=== PATIENT | female | born 1985 | race Caucasian/White ===

== ENCOUNTER 2017-03-20 15:58 | Emergency (ER) | payer MEDICAID ==
[~2017-03-20] VITALS: Wt 71.5 kg
[~2017-03-20 15:58] MED LIST: RANI150T5 PO
--- NOTE | 2017-03-20 16:56 | RADRPT ---
PROCEDURE: XR Chest. CLINICAL INDICATION: Shortness of breath. TECHNIQUE: Single frontal view. COMPARISON: None. FINDINGS: The lungs are clear. The heart size is normal. There is no pleural effusion. There is no pneumothorax. IMPRESSION: 1. Normal chest radiograph. RPTAT: QQ .Nikos Higgins MD, Date Time Electronically viewed and signed by .Nikos Higgins MD, on 03/20/2017 16:55 .R/
[2017-03-20] MEDS ORDERED: ACET325T33 PO (17:24)
--- NOTE | 2017-03-20 18:38 | ERD ---
ER Documentation Chief Complaint Chief Complaint sob, pain to left chest on inspiration HPI 31-year-old female complaining of left-sided chest pain. Patient's pain is only present during deep inspirations. Pain has been consistent for the last day. Denies recent travel. Denies OCP use. Denies recent surgeries. Denies any radiating cardiac chest pain. No hemoptysis. No fevers. No dyspnea on exertion. Has never had this before. Has been taking Tylenol for symptom relief with mild alleviation. ROS All systems reviewed and are negative except as per history of present illness. Medications Home Meds Active Scripts Acetaminophen* (Tylenol*) 325 Mg Tablet, 1 TAB PO Q6 Y for PAIN AND OR ELEVATED TEMP, #20 TAB Prov:FARRUKH SWEET PA-C 03/20/17 Reported Medications Ranitidine Hcl* (Ranitidine Hcl*) 150 Mg Tablet, 150 MG PO DAILY, TAB 04/05/14 Allergies Allergies: Coded Allergies: ibuprofen (Verified Allergy, Intermediate, RASH, 04/05/14) PMhx/Soc Medical and Surgical Hx: pt denies Medical Hx, pt denies Surgical Hx History of Surgery: No Anesthesia Reaction: No Hx Neurological Disorder: No Hx Respiratory Disorders: No Hx Cardiac Disorders: No Hx Psychiatric Problems: No Hx Miscellaneous Medical Probl: No Hx Alcohol Use: No Hx Substance Use: No Hx Tobacco Use: No Smoking Status: Never smoker Physical Exam Vitals Vital Signs Date Time Temp Pulse Resp B/P Pulse Ox O2 Delivery O2 Flow Rate FiO2 03/20/17 16:05 99.0 72 20 165/81 100 Physical Exam GENERAL: The patient is well-appearing, well-nourished, in no acute distress CHEST: Clear to auscultation bilaterally. There are no rales, wheezes or rhonchi. HEART: Regular rate and rhythm. No murmurs, clicks, rubs or gallops. No S3 or S4. SKIN: There is no apparent rash or petechiae. The skin is warm and dry. Procedures/MDM DIAGNOSTIC IMAGING REPORT Patient: CRAIG GUO : 1985 Age: 31 Sex: F MR #: [id number] DOS: 03/20/17 1631 Ordering MD: SYMONE SWEET PA-C Location: [facility] Room/Bed: PROCEDURE: XR Chest. CLINICAL INDICATION: Shortness of breath. TECHNIQUE: Single frontal view. COMPARISON: None. FINDINGS: The lungs are clear. The heart size is normal. There is no pleural effusion. There is no pneumothorax. IMPRESSION: 1. Normal chest radiograph. EKG: Rate/Rhythm: Normal sinus rhythm QRS, ST, T-waves: No STEMI Impression: Arrhythmias. Normal axis. 73 bpm. Venous signed off by Dr. Maria MDM: 31-year-old female complaining of chest wall pain. Patient's x-ray and EKG are within normal limits. Vital signs are stable. Exam is not concerning. I have low suspicion for endocarditis, myocarditis, [place], PE, or pneumonia. I have low suspicion for other acute cardiac or pulmonary emergencies. Patient is discharged with medication for pain and recommended to follow-up with primary care within 1-2 days for close evaluation. Patient is recommended to return to the ER symptoms change or worsen. All questions answered at discharge Departure Diagnosis: Primary Impression: Chest pain Condition: Stable Patient Instructions: Chest Pain, Uncertain Cause Referrals: [facility] YOU HAVE RECEIVED A MEDICAL SCREENING EXAM AND THE RESULTS INDICATE THAT YOU DO NOT HAVE A CONDITION THAT REQUIRES URGENT TREATMENT IN THE EMERGENCY DEPARTMENT. FURTHER EVALUATION AND TREATMENT OF YOUR CONDITION CAN WAIT UNTIL YOU ARE SEEN IN YOUR DOCTORS OFFICE WITHIN THE NEXT 1-2 DAYS. IT IS YOUR RESPONSIBILITY TO MAKE AN APPOINTMENT FOR FOLOW-UP CARE. IF YOU HAVE A PRIMARY DOCTOR --you should call your primary doctor and schedule an appointment IF YOU DO NOT HAVE A PRIMARY DOCTOR YOU CAN CALL OUR PHYSICIAN REFERRAL HOTLINE AT IF YOU CAN NOT AFFORD TO SEE A PHYSICIAN YOU CAN CHOSE FROM THE FOLLOWING [facility] [address] [facility] [address] [facility] [address] [facility] [address] [facility] [address] [facility]. [facility]. [address] Additional Instructions: FOLLOW UP WITH YOUR PRIMARY CARE PHYSICIAN TOMORROW.Return to this facility if you are not improving as expected. FARRUHK SWEET PA-C Mar 20, 2017 18:38
--- NOTE | 2017-03-20 18:38 | ERD ---
ER Documentation Chief Complaint Chief Complaint sob, pain to left chest on inspiration HPI 31-year-old female complaining of left-sided chest pain. Patient's pain is only present during deep inspirations. Pain has been consistent for the last day. Denies recent travel. Denies OCP use. Denies recent surgeries. Denies any radiating cardiac chest pain. No hemoptysis. No fevers. No dyspnea on exertion. Has never had this before. Has been taking Tylenol for symptom relief with mild alleviation. ROS All systems reviewed and are negative except as per history of present illness. Medications Home Meds Active Scripts Acetaminophen* (Tylenol*) 325 Mg Tablet, 1 TAB PO Q6 Y for PAIN AND OR ELEVATED TEMP, #20 TAB Prov:FARRUKH SWEET PA-C 03/20/17 Reported Medications Ranitidine Hcl* (Ranitidine Hcl*) 150 Mg Tablet, 150 MG PO DAILY, TAB 04/05/14 Allergies Allergies: Coded Allergies: ibuprofen (Verified Allergy, Intermediate, RASH, 04/05/14) PMhx/Soc Medical and Surgical Hx: pt denies Medical Hx, pt denies Surgical Hx History of Surgery: No Anesthesia Reaction: No Hx Neurological Disorder: No Hx Respiratory Disorders: No Hx Cardiac Disorders: No Hx Psychiatric Problems: No Hx Miscellaneous Medical Probl: No Hx Alcohol Use: No Hx Substance Use: No Hx Tobacco Use: No Smoking Status: Never smoker Physical Exam Vitals Vital Signs Date Time Temp Pulse Resp B/P Pulse Ox O2 Delivery O2 Flow Rate FiO2 03/20/17 16:05 99.0 72 20 165/81 100 Physical Exam GENERAL: The patient is well-appearing, well-nourished, in no acute distress CHEST: Clear to auscultation bilaterally. There are no rales, wheezes or rhonchi. HEART: Regular rate and rhythm. No murmurs, clicks, rubs or gallops. No S3 or S4. SKIN: There is no apparent rash or petechiae. The skin is warm and dry. Procedures/MDM DIAGNOSTIC IMAGING REPORT Patient: CRAIG GUO : 1985 Age: 31 Sex: F MR #: [id number] DOS: 03/20/17 1631 Ordering MD: SYMONE SWEET PA-C Location: [facility] Room/Bed: PROCEDURE: XR Chest. CLINICAL INDICATION: Shortness of breath. TECHNIQUE: Single frontal view. COMPARISON: None. FINDINGS: The lungs are clear. The heart size is normal. There is no pleural effusion. There is no pneumothorax. IMPRESSION: 1. Normal chest radiograph. EKG: Rate/Rhythm: Normal sinus rhythm QRS, ST, T-waves: No STEMI Impression: Arrhythmias. Normal axis. 73 bpm. Venous signed off by Dr. Maria MDM: 31-year-old female complaining of chest wall pain. Patient's x-ray and EKG are within normal limits. Vital signs are stable. Exam is not concerning. I have low suspicion for endocarditis, myocarditis, [place], PE, or pneumonia. I have low suspicion for other acute cardiac or pulmonary emergencies. Patient is discharged with medication for pain and recommended to follow-up with primary care within 1-2 days for close evaluation. Patient is recommended to return to the ER symptoms change or worsen. All questions answered at discharge Departure Diagnosis: Primary Impression: Chest pain Condition: Stable Patient Instructions: Chest Pain, Uncertain Cause Referrals: [facility] YOU HAVE RECEIVED A MEDICAL SCREENING EXAM AND THE RESULTS INDICATE THAT YOU DO NOT HAVE A CONDITION THAT REQUIRES URGENT TREATMENT IN THE EMERGENCY DEPARTMENT. FURTHER EVALUATION AND TREATMENT OF YOUR CONDITION CAN WAIT UNTIL YOU ARE SEEN IN YOUR DOCTORS OFFICE WITHIN THE NEXT 1-2 DAYS. IT IS YOUR RESPONSIBILITY TO MAKE AN APPOINTMENT FOR FOLOW-UP CARE. IF YOU HAVE A PRIMARY DOCTOR --you should call your primary doctor and schedule an appointment IF YOU DO NOT HAVE A PRIMARY DOCTOR YOU CAN CALL OUR PHYSICIAN REFERRAL HOTLINE AT IF YOU CAN NOT AFFORD TO SEE A PHYSICIAN YOU CAN CHOSE FROM THE FOLLOWING [facility] [address] [facility] [address] [facility]. [facility] [address] [facility] [address] [facility] [address] [facility]. [facility]. [address] Additional Instructions: FOLLOW UP WITH YOUR PRIMARY CARE PHYSICIAN TOMORROW.Return to this facility if you are not improving as expected. FARRUKH SWEET PA-C Mar 20, 2017 18:38
--- NOTE | 2017-03-20 18:38 | ERD ---
ER Documentation Chief Complaint Chief Complaint sob, pain to left chest on inspiration HPI 31-year-old female complaining of left-sided chest pain. Patient's pain is only present during deep inspirations. Pain has been consistent for the last day. Denies recent travel. Denies OCP use. Denies recent surgeries. Denies any radiating cardiac chest pain. No hemoptysis. No fevers. No dyspnea on exertion. Has never had this before. Has been taking Tylenol for symptom relief with mild alleviation. ROS All systems reviewed and are negative except as per history of present illness. Medications Home Meds Active Scripts Acetaminophen* (Tylenol*) 325 Mg Tablet, 1 TAB PO Q6 Y for PAIN AND OR ELEVATED TEMP, #20 TAB Prov:FARRUKH SWEET PA-C 03/20/17 Reported Medications Ranitidine Hcl* (Ranitidine Hcl*) 150 Mg Tablet, 150 MG PO DAILY, TAB 04/05/14 Allergies Allergies: Coded Allergies: ibuprofen (Verified Allergy, Intermediate, RASH, 04/05/14) PMhx/Soc Medical and Surgical Hx: pt denies Medical Hx, pt denies Surgical Hx History of Surgery: No Anesthesia Reaction: No Hx Neurological Disorder: No Hx Respiratory Disorders: No Hx Cardiac Disorders: No Hx Psychiatric Problems: No Hx Miscellaneous Medical Probl: No Hx Alcohol Use: No Hx Substance Use: No Hx Tobacco Use: No Smoking Status: Never smoker Physical Exam Vitals Vital Signs Date Time Temp Pulse Resp B/P Pulse Ox O2 Delivery O2 Flow Rate FiO2 03/20/17 16:05 99.0 72 20 165/81 100 Physical Exam GENERAL: The patient is well-appearing, well-nourished, in no acute distress CHEST: Clear to auscultation bilaterally. There are no rales, wheezes or rhonchi. HEART: Regular rate and rhythm. No murmurs, clicks, rubs or gallops. No S3 or S4. SKIN: There is no apparent rash or petechiae. The skin is warm and dry. Procedures/MDM DIAGNOSTIC IMAGING REPORT Patient: CRAIG GUO : 1985 Age: 31 Sex: F MR #: [id number] DOS: 03/20/17 1631 Ordering MD: SYMONE SWEET PA-C Location: [facility] Room/Bed: PROCEDURE: XR Chest. CLINICAL INDICATION: Shortness of breath. TECHNIQUE: Single frontal view. COMPARISON: None. FINDINGS: The lungs are clear. The heart size is normal. There is no pleural effusion. There is no pneumothorax. IMPRESSION: 1. Normal chest radiograph. EKG: Rate/Rhythm: Normal sinus rhythm QRS, ST, T-waves: No STEMI Impression: Arrhythmias. Normal axis. 73 bpm. Venous signed off by Dr. Maria MDM: 31-year-old female complaining of chest wall pain. Patient's x-ray and EKG are within normal limits. Vital signs are stable. Exam is not concerning. I have low suspicion for endocarditis, myocarditis, [place], PE, or pneumonia. I have low suspicion for other acute cardiac or pulmonary emergencies. Patient is discharged with medication for pain and recommended to follow-up with primary care within 1-2 days for close evaluation. Patient is recommended to return to the ER symptoms change or worsen. All questions answered at discharge Departure Diagnosis: Primary Impression: Chest pain Condition: Stable Patient Instructions: Chest Pain, Uncertain Cause Referrals: [facility] YOU HAVE RECEIVED A MEDICAL SCREENING EXAM AND THE RESULTS INDICATE THAT YOU DO NOT HAVE A CONDITION THAT REQUIRES URGENT TREATMENT IN THE EMERGENCY DEPARTMENT. FURTHER EVALUATION AND TREATMENT OF YOUR CONDITION CAN WAIT UNTIL YOU ARE SEEN IN YOUR DOCTORS OFFICE WITHIN THE NEXT 1-2 DAYS. IT IS YOUR RESPONSIBILITY TO MAKE AN APPOINTMENT FOR FOLOW-UP CARE. IF YOU HAVE A PRIMARY DOCTOR --you should call your primary doctor and schedule an appointment IF YOU DO NOT HAVE A PRIMARY DOCTOR YOU CAN CALL OUR PHYSICIAN REFERRAL HOTLINE AT IF YOU CAN NOT AFFORD TO SEE A PHYSICIAN YOU CAN CHOSE FROM THE FOLLOWING [facility] [address] [facility] [address] [facility]. [facility] [address] [facility] [address] [facility] [address] [facility]. [facility]. [address] Additional Instructions: FOLLOW UP WITH YOUR PRIMARY CARE PHYSICIAN TOMORROW.Return to this facility if you are not improving as expected. FARRUKH SWEET PA-C Mar 20, 2017 18:38
== END 2017-03-20 17:33 | disposition home or self-care (01) ==
LOC: FTE 15:58
DX: R07.9 Chest pain, unspecified (principal)
CPT/HCPCS: 71010; 93005; Z7502

== ENCOUNTER 2017-08-31 15:47 | Emergency (ER) | END 2017-08-31 19:41 | disposition home or self-care (01) ==

== ENCOUNTER 2018-02-04 13:07 | Emergency (ER) | END 2018-02-04 15:50 | disposition home or self-care (01) ==

== ENCOUNTER 2018-11-08 10:05 | Emergency (ER) | payer MEDICAID ==
[~2018-11-08] VITALS: Ht 165.1 cm; Wt 87.2 kg
[~2018-11-08 10:05] MED LIST changes: +ACET325T33 PO; +CYCL10TA7 PO; +FLUO20CA22 PO; +NAPR-985 PO
[2018-11-08 10:15] VITALS: BP 120/70; PULSE 75; RESP 18; Ht 165.1 cm; Wt 87.2 kg
[2018-11-08] MEDS ORDERED: ACETAMINOPHEN 325 MG TAB PO ONE (10:30)
[2018-11-08] MEDS ORDERED: ONDANSETRON (ODT) 4 MG TAB ODT STA (10:30)
[2018-11-08] MEDS ORDERED: ONDA4TAB14 PO (11:03)
[2018-11-08] MEDS ORDERED: MED4DP PO (11:04)
--- NOTE | 2018-11-08 11:05 | ERD ---
ER Documentation Chief Complaint Chief Complaint LEFT SIDE FACIAL SWELLING & SORETHROAT X 2 DAYS HPI 33-year-old female presents with left-sided facial swelling and sore throat since yesterday. Reports that she ate shrimp yesterday afternoon and has experienced this facial swelling since then. She reports that her lips were very swollen yesterday. She denies any difficulty breathing or respiratory compromise. She reports that she is feeling nauseated and vomited earlier this morning. She denies any previous history of similar incidents. He has not taken anything to help alleviate her pain. Denies any past medical history. ROS All systems reviewed and are negative except as per history of present illness. Medications Home Meds Active Scripts Methylprednisolone* (Medrol* DOSE PACK) 4 Mg/Dose-Pack Tab.ds.pk, 4 MG PO . DIRECTED for 5 Days, PACKET Prov:FERDINAND GILLIAM PA-C 11/08/18 Ondansetron (Ondansetron Odt) 4 Mg Tab.rapdis, 4 MG PO Q6H PRN for NAUSEA AND/OR VOMITING, #10 TAB Prov:FERDINAND GILLIAM PA-C 11/08/18 Naproxen* (Naprosyn*) 500 Mg Tablet, 500 MG PO BID PRN for PAIN AND/OR INFLAMMA TION, #30 TAB Prov:CHRISTEN DENNIS PA-C 02/04/18 Cyclobenzaprine Hcl* (Cyclobenzaprine Hcl*) 10 Mg Tablet, 10 MG PO TID, #15 TAB Prov:CHRISTEN DENNIS PA-C 02/04/18 Acetaminophen* (Tylenol*) 325 Mg Tablet, 2 TAB PO Q8 PRN for PAIN AND OR ELEVATED TEMP, #20 TAB Prov:MERE CHURCHILL MD 08/31/17 Fluoxetine Hcl* (Fluoxetine Hcl*) 20 Mg Capsule, 20 MG PO DAILY, #30 CAP Prov:MERE CHURCHILL MD 08/31/17 Acetaminophen* (Tylenol*) 325 Mg Tablet, 1 TAB PO Q6 PRN for PAIN AND OR ELEVATED TEMP, #20 TAB Prov:FARRUKH SWEET PA-C 03/20/17 Reported Medications Ranitidine Hcl* (Ranitidine Hcl*) 150 Mg Tablet, 150 MG PO DAILY, TAB 04/05/14 Allergies Allergies: Coded Allergies: No Known Allergy (Unverified , 02/04/18) PMhx/Soc Medical and Surgical Hx: pt denies Medical Hx, pt denies Surgical Hx History of Surgery: No Anesthesia Reaction: No Hx Neurological Disorder: No Hx Respiratory Disorders: No Hx Cardiac Disorders: No Hx Psychiatric Problems: No Hx Miscellaneous Medical Probl: Yes (MIGRAINE) Hx Alcohol Use: Yes (occassionally) Hx Substance Use: No Hx Tobacco Use: No Smoking Status: Never smoker FmHx Family History: No diabetes Physical Exam Vitals Vital Signs Date Temp Pulse Resp B/P (MAP) Pulse Ox O2 O2 Flow FiO2 Time Delivery Rate 11/08/18 98.2 75 18 120/70 100 10:15 (87) Physical Exam Const: No acute distress Head: Atraumatic, Slight swelling on left cheek Eyes: Normal Conjunctiva ENT: Normal External Ears, Nose and Mouth. Missing tooth lower left gumline. No signs of infection, no erythema, no blood. Neck: Full range of motion. Resp: Clear to auscultation bilaterally Cardio: Regular rate and rhythm Abd: Soft, non tender, non distended. Normal bowel sounds Skin: No petechiae or rashes Back: No midline or flank tenderness Ext: No cyanosis, or edema Neur: Awake and alert Psych: Normal Mood and Affect Results 24 hrs Laboratory Tests Test 11/08/18 10:42 Bedside Urine pH (LAB) 5.5 Bedside Urine Protein (LAB) Negative Bedside Urine Glucose (UA) Negative Bedside Urine Ketones (LAB) Negative Bedside Urine Blood 3+ Bedside Urine Nitrite (LAB) Negative Bedside Urine Leukocyte Esterase (L Trace POC Beta HCG, Qualitative NEGATIVE Current Medications Medications Dose Sig/Freida Start Time Status Last (Trade) Ordered Route PRN Stop Time Admin Dose Reason Admin Ondansetron 4 mg ONCE STAT 11/08/18 DC 11/08/18 HCl (Zofran ODT 10:30 10:36 Odt) 11/08/18 10:33 650 mg ONCE ONCE 11/08/18 DC 11/08/18 Acetaminophen PO 10:30 10:36 (Tylenol 11/08/18 10:33 Tab) Procedures/MDM ED COURSE: The patient was stable throughout ED course. I kept the patient informed of laboratory and diagnostic imaging results throughout the ED course. MEDICATIONS GIVEN: [None.] MEDICAL DECISION MAKING: Patient is a 33-year-old female presents with left-sided facial swelling since yesterday after eating shrimp. She reports that she had swollen lips and her left cheek was significantly swollen. During exam the swelling seems to be decreased and no signs of angioedema or respiratory compromise. Pt appears well overall right now and is not in any acute distress. I believe she suffered from an allergic reaction yesterday and is improving. Patient was given Medrol Dosepak and told to follow-up with her primary care provider. Patient was instructed reached return back to the ED if any signs of respiratory compromise or breathing difficulties arise. History and Physical along with other data not c/w emergent process including pneumonia, PE, abscess, pleural effusion or pneumothorax . Vital signs were reviewed. Patient is afebrile. Patient was not hypoxic. Patient was hemodynamically stable. PRESCRIPTION: Zofran, Medrol dose pack DISCHARGE: At this time, patient is stable for discharge and outpatient management. I have instructed the patient to follow-up with his/her primary care physician in 1-2 days. I have discussed with the patient the possibility of needing to see a specialist for further workup and imaging studies if symptoms persist. I have instructed the patient to promptly return to the ER for any new or worsening symptoms including increased pain, fever, nausea, vomiting, weakness or LOC. The patient and/or family expressed understanding of and agreement with this plan. All questions were answered. Home care instructions were provided. Disclaimer: Inadvertent spelling and grammatical errors are likely due to EHR/dictation software use and do not reflect on the overall quality of patient care. Also, please note that the electronic time recorded on this note does not necessarily reflect the actual time of the patient encounter. Departure Diagnosis: Primary Impression: Allergic reaction Encounter type: initial encounter Qualified Codes: T78.40XA - Allergy, unspecified, initial encounter Additional Impression: Swelling Condition: Fair Patient Instructions: Allergic Reaction, Other (General) Referrals: COMM[facility] YOU HAVE RECEIVED A MEDICAL SCREENING EXAM AND THE RESULTS INDICATE THAT YOU DO NOT HAVE A CONDITION THAT REQUIRES URGENT TREATMENT IN THE EMERGENCY DEPARTMENT. FURTHER EVALUATION AND TREATMENT OF YOUR CONDITION CAN WAIT UNTIL YOU ARE SEEN IN YOUR DOCTORS OFFICE WITHIN THE NEXT 1-2 DAYS. IT IS YOUR RESPONSIBILITY TO MAKE AN APPOINTMENT FOR FOLOW-UP CARE. IF YOU HAVE A PRIMARY DOCTOR --you should call your primary doctor and schedule an appointment IF YOU DO NOT HAVE A PRIMARY DOCTOR YOU CAN CALL OUR PHYSICIAN REFERRAL HOTLINE AT IF YOU CAN NOT AFFORD TO SEE A PHYSICIAN YOU CAN CHOSE FROM THE FOLLOWING [facility] [address] [facility] [address] [facility] [address] [facility] [address] [facility] [address] [facility] [facility] [address] [facility]. [facility] YOU HAVE RECEIVED A MEDICAL SCREENING EXAM AND THE RESULTS INDICATE THAT YOU DO NOT HAVE A CONDITION THAT REQUIRES URGENT TREATMENT IN THE EMERGENCY DEPARTMENT. FURTHER EVALUATION AND TREATMENT OF YOUR CONDITION CAN WAIT UNTIL YOU ARE SEEN IN YOUR DOCTORS OFFICE WITHIN THE NEXT 1-2 DAYS. IT IS YOUR RESPONSIBILITY TO MAKE AN APPOINTMENT FOR FOLOW-UP CARE. IF YOU HAVE A PRIMARY DOCTOR --you should call your primary doctor and schedule and appointment IF YOU DO NOT HAVE A PRIMARY DOCTOR YOU CAN CALL OUR PHYSICIAN REFERRAL HOTLINE AT . IF YOU CAN NOT AFFORD TO SEE A PHYSICIAN YOU CAN CHOSE FROM THE FOLLOWING [facility] INSTITUTIONS: [facility] [address] [place] [address] [facility] [address] [place] [address] [facility] [address] [place] [address] Additional Instructions: Call your primary care doctor TOMORROW for an appointment during the next 1-2 days.See the doctor sooner or return here if your condition worsens before your appointment time. FERDINAND GILLIAM PA-C Nov 08, 2018 11:05 MERE CHURCHILL MD Nov 08, 2018 21:55
== END 2018-11-08 11:13 | disposition home or self-care (01) ==
LOC: FTE 10:05
DX: T78.1XXA Other adverse food reactions, not elsewhere classified, initial encounter (principal)
CPT/HCPCS: 81003; 81025; Z7502; Z7610; 99283